=== PATIENT | female | born 1985 | race African-American/Black ===

== ENCOUNTER 2017-08-06 01:04 | Emergency (ER) | payer MEDICAID, SELFPAY ==
[2017-08-06 01:04] VITALS: BP 136/80; PULSE 99; RESP 20; TEMP 36.5; O2SAT 99; BMI 37.2
--- NOTE | 2017-08-06 01:20 | ED.VIS.GEN ---
History of Present Illness Chief Complaint: Upper Extremity Injury Informant: Patient Onset: Hours - 1 Context: Onset with activity - using hands to pull a carpet/rug toward her Timing: Continuous Quality: cracking, sore/ache Location: R mid arm / shoulder Current Severity: Mild Maximum Severity: Moderate Worsened by: reaching RUE behind back Relieved by: remaining still Associated Symptoms: none. no numb/tingling/weakness RUE. Narrative: RHD. no other injury. no elbow, wrist, hand pain/sx. no direct trauma. - Past Medical History (1) ADHD Status: Chronic (2) Depression Status: Chronic Past Medical History - Allergies and Home Meds Allergies/Adverse Reactions: Allergies No Known Allergies Allergy (Verified 08/06/17 01:06) Home Medications: Home Medications Medication Instructions Recorded Lamotrigine [Lamictal] 100 mg PO BID 12/12/14 DiphenhydrAMINE [Benadryl] 25 mg PO QHS PRN 12/19/15 Permethrin 5% [Permethrin 5%] 1 applicatio TOPICAL DAILY 07/06/16 Acyclovir [Zovirax] 500 mg PO BID 07/23/16 Dextroamphetamine/Amphetamine 10 mg PO DAILY 07/23/16 [Adderall Xr 10 mg Capsule] Bupropion HCl [Wellbutrin Sr] 100 mg PO BID 01/13/17 Gabapentin [Neurontin] 300 mg PO TIDCM 08/06/17 Naproxen [Naprosyn] 500 mg PO BID PRN #20 tab 08/06/17 Primary Care Physician: Ivania Beverly MD [Primary Care Provider] - Smoking Status: Current every day smoker Drugs: None Review of Systems All systems negative except as indicated Musculoskeletal: Reports: Extremity Pain - RUE Physical Exam Vital Signs/Narrative: Vital Signs Temp Pulse Resp BP Pulse Ox 08/06/17 01:04 97.7 F L 99 20 H 136/80 H 99 Inital Vital Signs reviewed: Yes General: Well nourished, Well developed Head: Normocephalic, Atraumatic Extremities: Nontender, No edema, - - Symmetric, soft right upper arm compartments bilaterally. No abnormal bulge. Patient is able to resist using biceps and triceps without reproducing any significant pain. Patient performs internal rotation, reaching her right arm behind her back, repeatedly, reproducing crackling in her right shoulder and does so without any difficulty. Neurological: Alert, Oriented x3, Cranial nerves II-XII grossly intact, Normal Strength, Normal Sensation, Normal DTR Psychological: Normal affect. Negative for: Agitated Diagnostic/Tx/Re-eval - Medical Decision Making Reassure patient, x-rays not necessary. I do not think that she ruptured any type of muscle or tendon or broke any bones. She can abduct at the right shoulder fully without difficulty. I suspect she has some type of mild sprain of the shoulder. Recommend NSAIDs, limited activity, other measures of supportive care. She is comfortable with that plan and following up as needed. ED Disposition - Plan for ED Patient: Disposition: Home or Assisted Living Chief Complaint: Upper Extremity Injury Diagnosis: Sprain of right shoulder Instructions: ED Sprain Shoulder Prescriptions: Naproxen [Naprosyn] 500 mg PO BID PRN #20 tab Referrals: Ivania Beverly MD [Primary Care Provider] - 1 Week if not improving
[2017-08-06] MEDS: Naproxen 500 MG Tablet PO (01:38)
[2017-08-06 01:46] VITALS: PULSE 81; RESP 18; O2SAT 98
--- NOTE | 2017-08-06 01:46 | ED.RN ---
THIS NURSE REVIEWED D/C INSTRUCTIONS WITH PT. PT VERBALIZED UNDERSTANDING OF INSTRUCTIONS. PT DENIES FURTHER NEEDS OR QUESTIONS AT THIS TIME. PT AMBULATES FROM ROOM ON OWN WITHOUT ASSISTANCE FROM STAFF
== END 2017-08-06 01:47 | disposition home or self-care (01) ==
PROVIDERS: Emergency Provider Emergency Medicine; Family Provider Internal Medicine; PCP Internal Medicine
DX: S43.401A Unspecified sprain of right shoulder joint, initial encounter (principal); X58.XXXA Exposure to other specified factors, initial encounter; Y93.9 Activity, unspecified; Y92.9 Unspecified place or not applicable; F90.9 Attention-deficit hyperactivity disorder, unspecified type; F32.9 Major depressive disorder, single episode, unspecified; Z79.899 Other long term (current) drug therapy; F17.200 Nicotine dependence, unspecified, uncomplicated
CPT/HCPCS: 99283

== ENCOUNTER → 2018-11-20 | Outpatient (CLI) | payer OTHER, SELFPAY ==
[2018-11-20 11:26] VITALS: BMI 28.3
--- NOTE | 2018-11-20 11:34 | RAD_ITS ---
STUDY: X-RAY - RIGHT WRIST REASON FOR EXAM: Increasing wrist pain and weakness. TECHNIQUE: 3 view(s) of the wrist were obtained. COMPARISON: None. FINDINGS: Normal visualized distal radius and ulna. There is a negative ulnar variance. Normal radiocarpal articulation. Normal distal radioulnar articulation. Normal carpal bones. Normal carpal articulations. Normal carpometacarpal articulation of the thumb. Normal second through fifth carpometacarpal articulations. Normal visualized metacarpal bones. The soft tissue structures are unremarkable. RAD/Wrist min 3 Views IMPRESSION: Normal x-ray examination of the right wrist. Electronically Signed: Ángel Adam MD at 11:56 EDT Tel , Service support ,
--- NOTE | 2018-11-20 11:55 | RAD_ITS ---
STUDY: X-RAY - LEFT HAND, ATTENTION RING FINGER REASON FOR EXAM: Pain, deformity, injury approximately a month ago. TECHNIQUE: 3 view(s) of the finger were obtained. COMPARISON: None. FINDINGS: Normal metacarpal head. Normal metacarpophalangeal joint. Normal proximal phalanx. Normal middle phalanx. Normal distal phalanx. Normal proximal interphalangeal joint. Normal distal interphalangeal joint. There is soft tissue swelling at the proximal interphalangeal joint. RAD/Finger(s) Min 2 Views IMPRESSION: Soft tissue swelling. No demonstrated fracture. Electronically Signed: Ángel Adam MD at 13:42 EDT Tel , Service support ,
== END | disposition home or self-care (01) ==
LOC: HPRAD 11:33
PROVIDERS: Family Provider Internal Medicine; PCP Internal Medicine; Referring Provider Orthopaedic Surgery; Visit Provider Orthopaedic Surgery
DX: M25.531 Pain in right wrist (principal); M79.645 Pain in left finger(s)
CPT/HCPCS: 73110; 73140

== ENCOUNTER 2020-09-25 08:31 | Day surgery (SDC) | payer OTHER, SELFPAY ==
[2019-03-12 14:44] VITALS: BMI 28.3
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
--- NOTE | 2020-09-19 09:52 | EKG12_ITS ---
Test Reason : PREOP Blood Pressure : / mmHG Vent. Rate : 071 BPM Atrial Rate : 071 BPM P-R Int : 140 ms QRS Dur : 084 ms QT Int : 386 ms P-R-T Axes : 069 084 060 degrees QTc Int : 419 ms Normal sinus rhythm Normal ECG Confirmed by RANDALL GALLO, TRINIDAD ([id number]), material expeditor FABIANA BAUTISTA ([id number]) on 09/22/2020 10:55:41 A M Referred By: Cindy Forbes Confirmed By:GUERRERO PEREIRA MD
[2020-09-25] VITALS (7 sets, daily range): BP systolic 120–138; BP diastolic 69–88; PULSE 65–85; RESP 16–18; TEMP 36.3–36.7; O2SAT 97–100; BMI 29.8
[2020-09-25 09:20] LABS: Hematocrit 39.2 % (37-47); Hemoglobin 12.8 g/dL (12.0-15.0); Mean Corp Hgb Conc 32.7 g/dL (32-36); Mean Corpuscular Hgb 32.2 pg (27.0-32.0); Mean Corpuscular Volume 98.7 fL (81-99); Mean Platelet Vol. 9.6 fl (6.2-12.0); Platelet Count 213 K/mm3 (150-450); RBC Distribution Width CV 12.8 % (11.6-14.6); RBC Distribution Width SD 46.2 fl (35.1-43.9); Red Blood Count 3.97 M/mm3 (4.2-5.4); White Blood Count 7.9 K/mm3 (4.4-11.0)
[2020-09-25 09:24] LABS: Internal QC Validated? YES +Cl - CLEAR BKGD
[2020-09-25 09:25] LABS: Pregnancy, Urine Negative Negative
[2020-09-25 09:26] LABS: International Normalized Ratio 1.1; Prothrombin Time (Protime)PT. 13.6 SECONDS (11.7-14.9)
[2020-09-25] MEDS: Acetaminophen 500 MG Tablet 1000 MG PO (09:28)
[2020-09-25] MEDS: Celecoxib 200 MG Capsule 400 MG PO (09:28)
[2020-09-25 09:29] LABS: Partial Thromboplast Time 30.5 Seconds (24.1-36.2)
[2020-09-25] MEDS: Lactated Ringers 1,000 ML 100 ML IV (09:30)
--- NOTE | 2020-09-25 09:30 | FALS_PTH ---
PATIENT: ASHA AGUILERA LOC: [facility] U#:[id number] AGE/SX: 35/F ROOM: RE09/25/[address]: Dr. Cindy Forbes MD : 1985 BED: DIS: 09/25/2020 SPEC #: [id number] RECD: 09/25/20 13:02 STATUS: RENARD BURNS #: [id number] TIMOTHY: 09/25/20 09:[address]: Cindy Forbes DEPT: SURGICAL PATHOLOGY RECD BY: Janeen Villafana ENTERED: 09/25/20 13:11 SP TYPE: FALL TUBES OTHR DR: Dr. Ivania Beverly MD Tissues: Fallopian tube Procedures: Surgery Specimen Level II HEADER OPERATION: Laparoscopic salpingectomy, Nexplanon removal PRE-OP DIAGNOSIS: Sterilization TISSUE SUBMITTED: Bilateral fallopian tubes MICROSCOPIC DIAGNOSIS Right and left fallopian tubes, bilateral salpingectomies: Two complete segments of fallopian tubes with no pathologic change. AM:kassy 09/26/2020 MICROSCOPIC DESCRIPTION Slides are reviewed. GROSS DESCRIPTION Received in fixative is one container labeled with the patient's name and designated bilateral fallopian tubes. The specimen consists of bilateral fallopian tubes including fimbrial ends measuring 5 cm in length and 0.6 cm in diameter and 6 cm in length and 0.5 cm in diameter. The fallopian tubes are not identified as right or left. Sections reveal unremarkable cut surfaces. Top Lifter sections are submitted in two cassettes with each cassette containing one fallopian tube. / MICHELLE:kassy 09/25/20 TC:4 CPT: 08267 x2
[2020-09-25 09:41] LABS: AST(SGOT) 24 U/L (15-37); Alanine Aminotransfer ALT/SGPT 30 U/L (13-56); Albumin, Serum 4.2 g/dL (3.2-5.0); Alkaline Phosphatase 63 U/L (45-117); Bilirubin, Direct 0.17 mg/dL (0.00-0.30); Globulin 3.3 g/dL (2.2-4.2); Protein, Total 7.5 g/dL (6.4-8.2)
--- NOTE | 2020-09-25 09:57 | PCM.DC ---
Discharge Instructions Diet Discharge Diet: No restrictions Activity Discharge Activity: May Shower and May Take a Tub Bath (in 4 days) Return to work on:: 09/29/20 May resume sexual activity in: 1 week Dressing / Incision Call your doctor if your incision/area has: Sudden Increased Bleeding, Foul Smelling Discharge and - (remove the bandage from your arm on Tuesday09/26/2020) Call your doctor if you observe: Fever of 101 or Higher Cleanse incision/area with: Soap & Water (Your incisions have skin glue and it can get wet. Leave on until it falls off) Follow Up Care Please Follow Up With: Cindy Forbes MD When: In my office or virtual visit in 1-2 weeks or as needed Test Results: Test results from this visit will be discussed in further detail at your follow-up appointment, if applicable. Discharge Plan Admission Primary Reason for Your Visit: Tubal sterilization and Nexplanon removal Attending Provider: Cindy Forbes Primary Care Provider: Ivania Beverly Discharge Orders/Prescriptions Prescriptions: New acetaminophen [Tylenol Extra Strength] 500 mg tablet 1,000 mg PO Q6H PRN (Reason: pain) 7 Days RF: 0 Continued lamotrigine 100 MG tablet 200 mg PO DAILY RF: 0 diphenhydramine HCl 25 MG capsule 25 mg PO QHS PRN (Reason: Insomnia) RF: 0 acyclovir 400 MG tablet 500 mg PO BID RF: 0 dextroamphetamine-amphetamine 10 MG capsule,extended release 24hr 10 mg PO DAILY RF: 0 bupropion HCl 100 MG tablet sustained-release 12 hr 100 mg PO BID RF: 0 gabapentin 300 MG capsule 300 mg PO TIDCM RF: 0 venlafaxine 75 mg Tablet 75 mg PO DAILY RF: 0 Vraylar 1.5 mg Capsule 1.5 mg PO DAILY RF: 0 naproxen 500 MG tablet 500 mg PO BID PRN PRN (Reason: Pain) RF: 0 Referrals / Follow Up: Ivania Beverly MD [Primary Care Provider] - Disposition Disposition (needs filled in before D/C Order can be placed): Home, Self Care
--- NOTE | 2020-09-25 10:01 | OP.PCM_ITS ---
Problems Associated Problem List Diagnoses (1) Nexplanon removal: (2) Sterilization: Report of Operation Date of Procedure: 09/25/20 Pre-Operative Diagnosis: sterilization request, nexplanon removal Post-Operative Diagnosis: same Surgery/Procedure Performed:: Laparoscopic bilateral salpingectomy, with Nexplanon removal Description of Surgical Findings:: Normal-appearing cervix and vagina, normal- appearing uterus tubes and ovaries Surgeon: Cindy Forbes chief nurse anesthetist: HONEY rao chief nurse anesthetist: Tamara Pineda Type of Anesthesia: General Anesthesiologist: Teddy Jovel Special Medications: none Specimen's removed: bilateral fallopian tubes Drains: none Estimated Blood Loss (mL): 10 Fluids Replaced: 800 Description of Procedure: The patient was taken to the operating room where she was prepped and draped in the dorsolithotomy position. The left arm had been prepped with Betadine. I made a small incision in her prior scar. The Nexplanon was pushed to the edge of the scar and a hemostat was used to stabilize it as the fibers overlying the Nexplanon were dissected off with a scalpel. The Nexplanon was removed intact. A bandage was placed over it. Attention was then turned to the other portion of the case. A weighted speculum was placed in the vagina and the anterior lip of the cervix was grasped with a tenaculum. The Sammie uterine manipulator was placed and the remainder of the instruments were removed from the vagina. Attention was turned to the abdomen. All port sites were infiltrated with 0.5% Marcaine before skin incisions were made. A 5 mm intraumbilical incision was made. The anterior abdominal wall was tented up with 2 towel clamps while a 5 mm blade less trocar and sleeve were directly inserted. Intraperitoneal placement was confirmed with the laparoscope. The pneumoperitoneum was created and the underlying abdominal contents were intact. The patient was placed in Trendelenburg. Right and left lower quadrant ports were placed under direct visualization lateral to the inferior epigastric vessels. The bowel was swept away and the above findings were noted. The Endoseal device was used to clamp seal and transect the antimesenteric portions of the right tube to the cornual insertion of the uterus. The tube was amputated from the uterus and the pedicles were all confirmed to be hemostatic. The same procedure was performed on the contralateral side. The specimens were brought out through a 5 mm port. The pedicles were again examined and found to be hemostatic. The lateral ports were removed under direct visualization and no active bleeding was noted intraperitoneal. However, on the left lateral port there was active bleeding in the subcutaneous tissue. A hemostat was used to grasp the bleeding but blood vessel and 3-0 Vicryl was placed around it. Hemostasis was then noted. The pneumoperitoneum was released. The skin incisions were closed with Monocryl suture in a subcuticular fashion and skin glue by the SENIOR JAVA ARCHITECT. The SENIOR JAVA ARCHITECT also provided camera guidance and tissue manipulation.. The vaginal instruments were removed and the vaginal sweep was completed by me. The procedure was performed by me with assistance other than as dictated above. All sponge and needle counts were correct and the patient was taken to the recovery room in stable condition. Start time * Stop time* Grafts/Implants Used: none Procedure Start Time: 10:17 Procedure Stop Time: 10:54 Complications none Admit VTE Documentation VTE Present on Admission: No VTE Mechan Device Prophylaxis: SCD's VTE Pharm Prophylaxis ordered?: No Reason prophylaxis not ordered:: Procedure Not Indicated
[2020-09-25] MEDS: Bupivacaine Mpf 0.5% 30 ML VIAL (10:17)
== END 2020-09-25 12:37 | disposition home or self-care (01) ==
LOC: SDC 08:37 → AC 08:38
PROVIDERS: Anesthesiology; PCP Internal Medicine; Referring Provider Obstetrics & Gynecology; Visit Provider Obstetrics & Gynecology
PROC: (CPT 58661; principal; 2020-09-25 09:15)
DX: Z30.2 Encounter for sterilization (principal); Z30.46 Encounter for surveillance of implantable subdermal contraceptive; F41.9 Anxiety disorder, unspecified; F43.10 Post-traumatic stress disorder, unspecified; F31.9 Bipolar disorder, unspecified; L40.9 Psoriasis, unspecified; F90.9 Attention-deficit hyperactivity disorder, unspecified type; Z86.718 Personal history of other venous thrombosis and embolism; Z79.899 Other long term (current) drug therapy
CPT/HCPCS: 00840; 11982; 58661; 80076; 81025; 85027; 85610; 85730; 88302; 93005; J7120; C1760; J2405

== ENCOUNTER 2024-05-03 10:54 | Day surgery (SDC) | payer OTHER, SELFPAY ==
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
[2024-05-03] VITALS (10 sets, daily range): BP systolic 112–118; BP diastolic 67–79; PULSE 46–65; RESP 16; TEMP 36.3–36.9; O2SAT 99–100; BMI 30.8
[2024-05-03 11:39] LABS: Hematocrit 36.6 % (37-47); Hemoglobin 11.9 g/dL (12.0-15.0); Mean Corp Hgb Conc 32.5 g/dL (32-36); Mean Corpuscular Hgb 30.7 pg (27.0-32.0); Mean Corpuscular Volume 94.6 fL (81-99); Mean Platelet Vol. 9.4 fl (6.2-12.0); Platelet Count 223 K/mm3 (150-450); Red Blood Count 3.87 M/mm3 (4.2-5.4)
--- NOTE | 2024-05-03 11:58 | PCM.PRE.AN2 ---
ASA Classification* ASA Classification ASA Classification: 2 Assessment & Plan Anesthesia* Anesthesia Assessment Anesthesia Assessment: Discussed sedation and/or anesthesia options, risks, benefits, and alternatives with patient/parents/legal guardian/POA. Questions invited. The patient/parents/legal guardian/POA seems to understand and agrees to proceed with anesthesia plan. Reviewed the physical assessment, medical history, allergy history and patient home medications list prior to surgery/procedure/anesthetic and documented any changes. Performed airway and anesthesia risk assessments. Anesthesia Type Anesthesia Type: MAC History Source History Obtained from:: Patient and Chart Anesthesia Focused Assessment* Temperature: 98.0 F Pulse Rate: 60 Blood Pressure: 118/72 Respiratory Rate: 16 Pulse Ox: 100 Oxygen Delivery Method: Room Air Airway Assessment Mouth opens: >3 cm Mallampati Score: II Teeth Condition: Missing (Top tooth #10 is loose.) Neck Range of motion (ROM): Full ROM Focused Labs Anesthesia Preop lab: CBC WBC 5.0 K/mm3 (4.4-11.0) 05/03/24 11:32 05/03/24 RBC 3.87 M/mm3 (4.2-5.4) L 05/03/24 11:32 05/03/24 Hgb 11.9 g/dL (12.0-15.0) L 05/03/24 11:32 05/03/24 Hct 36.6 % (37-47) L 05/03/24 11:32 05/03/24 Plt Count 223 K/mm3 (150-450) 05/03/24 11:32 05/03/24 CHEMISTRY Potassium 3.4 mmol/L (3.5-5.1) L 07/05/16 23:25 07/05/16 Sodium 136 mmol/L (136-145) 07/05/16 23:25 07/05/16 BUN 9 mg/dL (7-18) 07/05/16 23:25 07/05/16 Creatinine 0.88 mg/dL (0.55-1.02) 07/05/16 23:25 07/05/16 Glucose 81 mg/dL (70-110) 07/05/16 23:25 07/05/16 COAG PT 13.6 SECONDS (11.7-14.9) 09/25/20 08:55 09/25/20 Urine Test Negative Negative 09/25/20 08:55 09/25/20 Pre-Assessment Diagnosis/Proposed Procedure Planned Operative Procedure(s): I&D OF LEFT LABIAL CYST Anesthesia History 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 When Was Last Pacemaker Check QUESTION #4 FULL TEXT: You/Your Family Experience fever (hyperthermia) with Anesthesia Last Oral Intake Last Oral intake: Last Oral Intake NPO since 23:00 05/03/24 11:21 Meds taken in AM with sips of No 05/03/24 11:21 water? 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 Female Yes 05/01/24 09:04 HX of Motion Sickness Yes 05/01/24 09:04 HX of N/V After Surgery No 05/01/24 09:04 Non-Smoker No 05/01/24 09:04 Duration of Surgery greater No 05/01/24 09:04 than 60 minutes Number of Risk Factors 2 05/01/24 09:04 PONV Score Moderate Risk 05/01/24 09:04 Height & Weight Height & Weight: Anesthesia: Height & Weight Height 5 ft 5 in 05/03/24 11:21 Weight: 84.005 kg 05/03/24 11:21 Body Mass Index (BMI) 30.8 05/03/24 11:21 Respiratory Assessment Respiratory Assessment - rotary shear operator: Respiratory Tract Infection Hx - rotary shear operator Hx Respiratory Tract Infection No 05/01/24 09:04 Any additional information?: Yes Hx Respiratory Tract Infection: Yes (Pt had bilateral ear infections. finished with a course of antibiotics.) STOP Sleep Apnea STOP Sleep Apnea - rotary shear operator: STOP Sleep Apnea - rotary shear operator Hx Hypertension No 05/01/24 09:04 Hx Sleep Apnea No 05/01/24 09:04 CPAP No 09/25/20 11:09 BIPAP No 02/02/19 15:01 Do you snore loudly (louder No 05/01/24 09:04 than talking or can be heard Do you often feel tired/ No 05/01/24 09:04 fatigued/ sleepy during daytime? Has anyone observed you stop No 05/01/24 09:04 breathing during sleep? STOP Results Negative 05/01/24 09:04 QUESTION #5 FULL TEXT : Do you snore loudly (louder than talking or can be heard through closed doors)? 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 Specify any problems Hx of Preganancy in last 3 No 05/01/24 09:04 Months Nurse Filling Out Transfusion DSCHRIBER 05/01/24 09:04 & Questions: Date: 05/01/24 05/01/24 09:04 Time: 09:05 05/01/24 09:04 Patient unable to answer at this time (ie. confused, unrespo /Reproduction History /Reproductive History - rotary shear operator: /Reproductive Hx- rotary shear operator Hx Now No 05/01/24 09:04 Gestational Age (in weeks): EDC: Hx Hx Para Hx Section SAB No 05/01/24 09:04 PFSH Medical History ADD (attention deficit disorder) Anxiety Alcohol use Marijuana use Shortness of breath on exertion Herpes Wears glasses Borderline personality disorder PTSD (post-traumatic stress disorder) Bipolar disorder History of psoriasis DVT (deep venous thrombosis) Easy bruising Smoker Home Medications ?Medication ?Instructions ?Recorded ?Last Taken ?Type acyclovir 400 mg tablet 400 mg PO BID Herpes 07/23/16 05/02/24 History dextroamphetamine-amphetamine ER 20 mg PO DAILY PRN ADHD 07/23/16 Unknown History 10 mg 24hr capsule,extend release bupropion HCl 100 mg tablet,12 hr 300 mg PO DAILY depression 01/13/17 05/02/24 History sustained-release gabapentin 300 mg capsule 300 mg PO TIDCM anxiety 08/06/17 05/02/24 History cariprazine 1.5 mg capsule 3 mg PO DAILY antipsychotic 09/18/20 05/02/24 History (Vraylar) venlafaxine 75 mg tablet 75 mg PO DAILY anxiety/depression 09/18/20 05/02/24 History acetaminophen 500 mg tablet 1,000 mg (2 x 500 mg) PO Q6H PRN 09/25/20 05/02/24 Rx (Tylenol Extra Strength) pain 7 days lamotrigine 150 mg tablet 300 mg PO QHS 05/01/24 05/02/24 History amoxicillin 875 mg tablet 875 mg PO BID 05/03/24 05/02/24 History Allergy/AdvReac Type Severity Reaction Status Date / Time No Known Allergies Allergy Verified 05/03/24 11:13 Surgical History Hx of bilateral salpingectomy History of dilatation and curettage History of colonoscopy Social History Smoking Status: Current every day smoker tobacco type: e-cigarettes Review of Systems (Anesthesia) ROS Narrative System reviewed and no additional complaints, except as documented.
--- NOTE | 2024-05-03 13:19 | PCM.DC ---
Discharge Instructions Diet Discharge Diet: No restrictions DC O2, CPAP, BIPAP needs Home O2 Discharge instructions: No Dressing / Incision Discharge Activity: May Shower Return to work on:: 05/07/24 May resume sexual activity in: 2 weeks Lifting Restrictions: none Dressing / Incision Call your doctor if your incision/area has: Sudden Increased Bleeding and Foul Smelling Discharge Call your doctor if you observe: Fever of 101 or Higher and Using more than 1 pad per hour (for 2 hrs in a row) Follow Up Care Please Follow Up With: Cindy Forbes MD When: In approximately 2 weeks in my office. Call [phone] or send a [employer] message to make an appointment or with any concerns. Test Results: Test results from this visit will be discussed in further detail at your follow-up appointment, if applicable. Discharge Plan Admission Primary Reason for Your Visit: Incision and drainage of left vulvar cyst Attending Provider: Cindy Forbes Primary Care Provider: Ivania Beverly Instructions Print Language: Belarusian Discharge Orders/Prescriptions Prescriptions: No Action acyclovir 400 MG tablet 400 mg PO BID dextroamphetamine-amphetamine 10 MG capsule,extended release 24hr 20 mg PO DAILY PRN (Reason: ADHD) Patient Comments: needs refilled bupropion HCl 100 MG tablet sustained-release 12 hr 300 mg PO DAILY gabapentin 300 MG capsule 300 mg PO TIDCM venlafaxine 75 mg Tablet 75 mg PO DAILY Vraylar 1.5 mg Capsule 3 mg PO DAILY acetaminophen [Tylenol Extra Strength] 500 mg tablet 1,000 mg PO Q6H PRN (Reason: pain) 7 Days 0RF lamotrigine 150 mg tablet 300 mg PO QHS amoxicillin 875 mg tablet 875 mg PO BID Referrals / Follow Up: Ivania Beverly MD [Primary Care Provider] - Disposition Disposition (needs filled in before D/C Order can be placed): Home, Self Care
[2024-05-03] MEDS: Lidocaine 1% (20 ml mdv) 20 ML Vial (13:42)
--- NOTE | 2024-05-03 13:49 | OP.PCM_ITS ---
Problems Associated Problem List Diagnoses (1) Inclusion cyst of vulva: Operative Report (Standard) Operative Information Date of Procedure: 05/03/24 Pre-Operative Diagnosis: left labial cyst, recurrent Post-Operative Diagnosis: same Surgery/Procedure Performed: Incision and drainage of left labial cyst coper hand: Yes Chemistry Research Assistant: Prakash Lawton MS3 Tasks completed by certified surgical tech/first assistant: Retracting Additional phlebotomist lab assistant?: No Type of Anesthesia: MAC/Supplemental/Local RN Documented Start/Stop Times: Operation Date: 05/03/24 13:00 Case Time Into Pre-Op 05/03/24 11:02 Procedure Start Time: 13:37 Procedure Stop Time: 13:45 Select all DRAINS/GRAFTS/IMPLANTS that apply: None Special Medications: none Estimated Blood Loss: <5 cc Fluids Replaced: 0 Specimen collected: No Description of surgery: The patient was taken the operating room was prepped and draped in the dorsal lithotomy position. The left labial cyst was noted to be approximately 3 x 2 cm. It was fluctuant. There is an area near the introitus that was very thin and looked like where it had been drained before. This area was anesthetized with 1% Xylocaine and incised with a scalpel. Red mucoid material returned. No purulence. No malodor. No surrounding erythema. The edges were Bovie cauterized where there was any bleeding. The cyst wall did not easily dissect off so the cyst wall was not removed. The cyst was very near the urethra and I did not want to risk getting into any significant bleeding as the cyst wall was approximately 1.5 cm deep in the tissue.. The edges were tacked back so that the incision would be left open to drain. No active bleeding was noted. Sponge and needle counts were correct. Vaginal sweep completed by me. Surgical Findings: normal urethra and right labia and perinum Complications Complications: No Admit VTE Documentation VTE Present on Admission: No VTE Pharm Prophylaxis ordered?: No
--- NOTE | 2024-05-03 13:57 | PCM.POST.ANE ---
Anesthesia: Postop Eval I Current Vital Signs Temperature: 98.5 F Pulse Rate: 46 Blood Pressure: 117/79 Respiratory Rate: 16 Pulse Ox: 100 Oxygen Delivery Method: Room Air Assessment Airway patent: Yes Spontaneous unlabored respirations: Yes Mental status: Awake and Calm nausea: No Vomiting: No Anesthesia Complication: No Fluid Hydration Crystalloid volume administer (ml): 10 Total IV fluid infused: 10 Progress Note Anesthesia document: Postop Eval 1 completed: Yes
--- NOTE | 2024-05-03 23:32 | POSTOPAN2_ITS ---
Anesthesia Postop Eval I Sum Postop Eval Completion status Anesthesia document: Postop Eval 1 completed: Yes Anesthesia Postop Eval I Summary Anesthesia Postop Eval I Summary: Anesthesia Postop Eval I: Assessment Summary Airway patent Yes 05/03/24 13:58 SUPERVISOR DRAWING.[email or web address] Spontaneous unlabored Yes 05/03/24 13:58 SUPERVISOR DRAWING.GDOTT respirations Mental status Awake,Calm 05/03/24 13:58 SUPERVISOR DRAWING.GDOTT nausea No 05/03/24 13:58 SUPERVISOR DRAWING.GDOTT Vomiting No 05/03/24 13:58 SUPERVISOR DRAWING.GDOTT Anesthesia Postop Eval I: Fluid Summary Crystalloid volume administer 10 05/03/24 13:58 SUPERVISOR DRAWING.GDOTT (ml) Colloids volume administered ( ml) Blood Product volume administered (ml) Total IV fluid infused 10 05/03/24 13:58 SUPERVISOR DRAWING.GDOTT Anesthesia Postop Eval I: Summary Notes Anesthesia Complication No 05/03/24 13:58 SUPERVISOR DRAWING.GDOTT Anesthesia Complication Comment: Post-operative progress note Anesthesia: Postop Eval II Evaluation Mental status: Awake and Calm Pain Level: 1 nausea: No Vomiting: No Complications Anesthesia Complication: No
--- NOTE | 2024-05-03 23:32 | PCM.POSTANE2 ---
Anesthesia Postop Eval I Sum Postop Eval Completion status Anesthesia document: Postop Eval 1 completed: Yes Anesthesia Postop Eval I Summary Anesthesia Postop Eval I Summary: Anesthesia Postop Eval I: Assessment Summary Airway patent Yes 05/03/24 13:58 ENVIRONMENTAL HEALTH AND SAFETY LEADER.GDOTT Spontaneous unlabored Yes 05/03/24 13:58 ENVIRONMENTAL HEALTH AND SAFETY LEADER.GDOTT respirations Mental status Awake,Calm 05/03/24 13:58 ENVIRONMENTAL HEALTH AND SAFETY LEADER.GDOTT nausea No 05/03/24 13:58 ENVIRONMENTAL HEALTH AND SAFETY LEADER.GDOTT Vomiting No 05/03/24 13:58 ENVIRONMENTAL HEALTH AND SAFETY LEADER.GDOTT Anesthesia Postop Eval I: Fluid Summary Crystalloid volume administer 10 05/03/24 13:58 ENVIRONMENTAL HEALTH AND SAFETY LEADER.GDOTT (ml) Colloids volume administered ( ml) Blood Product volume administered (ml) Total IV fluid infused 10 05/03/24 13:58 ENVIRONMENTAL HEALTH AND SAFETY LEADER.GDOTT Anesthesia Postop Eval I: Summary Notes Anesthesia Complication No 05/03/24 13:58 ENVIRONMENTAL HEALTH AND SAFETY LEADER.GDOTT Anesthesia Complication Comment: Post-operative progress note Anesthesia: Postop Eval II Evaluation Mental status: Awake and Calm Pain Level: 1 nausea: No Vomiting: No Complications Anesthesia Complication: No
== END 2024-05-03 15:06 | disposition home or self-care (01) ==
LOC: SDC 10:57 → AC 10:58
PROVIDERS: PCP Internal Medicine; Referring Provider Obstetrics & Gynecology; Visit Provider Obstetrics & Gynecology
PROC: (CPT 56420; principal; 2024-05-03 12:45)
DX: N90.7 Vulvar cyst (principal); F31.9 Bipolar disorder, unspecified; F43.10 Post-traumatic stress disorder, unspecified; F90.9 Attention-deficit hyperactivity disorder, unspecified type; Z86.718 Personal history of other venous thrombosis and embolism; F17.290 Nicotine dependence, other tobacco product, uncomplicated
CPT/HCPCS: 56405; 00940; 85027; A4216; J2405